=== PATIENT | female | born 1950 | race Caucasian/White ===

== ENCOUNTER 2016-11-10 08:17 | Emergency (ER) | payer OTHER ==
[~2016-11-10] VITALS: Ht 167.6 cm; Wt 136.1 kg
--- NOTE | ~2016-11-10 | EKG ---
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
[~2016-11-10 08:17] MED LIST: ABILIFY 5 MG TAB5 M1 PO; ACCUNEB1.25 MG/3 IH; ALBUTEROL2.5 MG/0.5 INH; ALBUTEROL2.5 MG/32; ASMANEX0.135 GM IH; ATIVAN0.5 MG PO; ATIVAN1 MG PO; BACTRIM DS TAB1 EACH PO; CEFTIN500 MG PO; CELEXA40 MG PO; CIPRO500 M1 PO; CIPROFLOXACIN500 M1 PO; CLEOCIN HCL300 MG PO; CYCLOBENZAPRINE10 MG PO; DEPAKOTE ER500 MG PO; DIOVAN PO; DOXYCYCLINE 10100 MG PO; GLIPIZIDE-METF1 EAC1 PO; INVOKANA100 MG PO; LATUDA40 MG PO; LATUDA80 MG PO; LEVOTHYROXIN0.125 M1 PO; LEVOTHYROXINE0.05 MG NG; LIPITOR40 MG PO; LISINOPRIL20 MG PO; LITHIUM CARBON300 M3 PO; LITHIUM8 MEQ/5 ML PO; NEBULIZER; NORCO 5-325 TA1 EACH PO; NYSTATIN 1100000 U/M PO; PRAVACHOL40 MG PO; PREDNISONE 20 M20 M1 PO; PREDNISONE 20 M20 MG PO; PREDNISONE50 MG PO; PRISTIQ50 MG PO; PROAIR HFA8.5 GM IH; PROBIOTIC1 EAC1 PO; PROVENTIL HFA6.7 G1 INH; SAPHRIS10 MG SL; SYNTHROID50 MCG PO; TRAMADOL 50 MG50 MG PO; VENTOLIN HFA 1818 GM INH; VITAMIN D 5050000 I1 PO; ZPAK PO
[2016-11-10 09:18] LABS: ABSOLUTE NEUTROPHILS 6.5 thou/uL (1.4-8.2); BASOPHILS 0.3 % (0.0-2.0); HEMATOCRIT 38.2 % (37.0-47.0); HEMOGLOBIN 12.7 gm/dL (12.0-15.0); LYMPHOCYTES 6.7 % (24.0-44.0); MCH 29.1 pg (26.0-34.0); MCHC 33.3 g/dL (28.0-37.0); MCV 87.6 fL (80.0-100.0); MONOCYTES 4.5 % (1.0-8.0); PLATELET COUNT 219 thou/uL (150-400); POLYS 84.5 % (36.0-66.0); RBC 4.36 mil/uL (4.20-5.00); RDW 14.4 % (10.5-14.5); WBC 7.7 thou/uL (4.0-11.0)
[2016-11-10 09:22] LABS: MANUAL DIFF NO
[2016-11-10 09:27] LABS: ANION GAP 8 mmol/L (7-16); BUN 8 mg/dL (7-18); CALCIUM 8.5 mg/dL (8.5-10.1); CHLORIDE 103 mmol/L (98-107); CO2 26 mmol/L (21-32); CREATININE 0.7 mg/dL (0.6-1.0); GLUCOSE 120 mg/dL (74-106); POTASSIUM 4.1 mmol/L (3.5-5.1); SODIUM 137 mmol/L (136-145)
[2016-11-10 09:42] LABS: ALBUMIN 3.3 g/dL (3.4-5.0); ALKALINE PHOSPHATASE 68 U/L (46-116); NT-PRO BRAIN NAT PEPTIDE 62 pg/mL (<300); SGOT 30 U/L (15-37); SGPT 27 U/L (30-65); TOTAL BILIRUBIN 0.4 mg/dL (<0.1-1.0); TROPONIN-I < 0.04 ng/mL (<0.04-0.07)
[2016-11-10] MEDS ORDERED: TRAMADOL 50 MG50 MG PO (10:11)
[2016-11-10 10:41] VITALS: BP 122/94
== END 2016-11-10 10:43 | disposition home or self-care (01) ==
LOC: ER 08:17
PROVIDERS: Emergency Medicine
DX: R42 Dizziness and giddiness (principal); S20.221A Contusion of right back wall of thorax, initial encounter; S09.90XA Unspecified injury of head, initial encounter; G89.29 Other chronic pain; R10.13 Epigastric pain; E11.649 Type 2 diabetes mellitus with hypoglycemia without coma; J45.909 Unspecified asthma, uncomplicated; F31.9 Bipolar disorder, unspecified; I10 Essential (primary) hypertension; M79.7 Fibromyalgia; E03.9 Hypothyroidism, unspecified; E78.00 Pure hypercholesterolemia, unspecified; F43.10 Post-traumatic stress disorder, unspecified; Z88.0 Allergy status to penicillin; Z88.5 Allergy status to narcotic agent; Z91.040 Latex allergy status; Z91.030 Bee allergy status; W18.30XA Fall on same level, unspecified, initial encounter; Y93.89 Activity, other specified; Y92.89 Other specified places as the place of occurrence of the external cause; Y99.8 Other external cause status

== ENCOUNTER 2017-02-19 11:27 | Inpatient (IN) | payer OTHER ==
[~2017-02-19] VITALS: Ht 167.6 cm; Wt 121.7 kg
--- NOTE | ~2017-02-19 | EKG ---
[address] [place] [address] ELECTROCARDIOGRAM REPORT Name: QUINTEN JAIMES Room #: 315-P ADM IN M.R.#: [id number] Admission: 02/19/17 Attend Phys: Blake Antoine DO Discharge: Date of : 48 Report #: [id number] THIS REPORT FOR: //name// [facility] ED Test Date: 2017-02-19 Test Time: 11:39:53 Pat Name: QUINTEN JAIMES Department: Room: [facility] Gender: F Planned Giving Officer: JARAD : 1950 Requested By: Jonathan Dunbar Order Number: [id number] MD: Brayan Damian Measurements Intervals [place] Rate: 112 P: 60 SC: 161 QRS: -60 QRSD: 110 T: 44 QT: 349 QTc: 477 Interpretive Statements Sinus tachycardia LAD, consider left anterior fascicular block Compared to ECG 11/10/2016 10:16:39 No significant change was found Electronically Signed On 02-20-2017 10:40:05 CDT by Brayan Damian [email or web address] <ELECTRONICALLY SIGNED> By: Brayan Damian MD, [facility] 02/20/17 1040 1139 1139 Brayan Damian MD, [facility] /EPI
[2017-02-19 11:29] VITALS: BP 131/83
[2017-02-19] MEDS ORDERED: GLUCOPHAGE1000 MG PO (12:29)
[2017-02-19 12:39] LABS: ABSOLUTE NEUTROPHILS 2.7 thou/uL (1.4-8.2); BASOPHILS 0.4 % (0.0-2.0); EOSINOPHILS 10.8 % (0.0-3.0); HEMATOCRIT 34.2 % (37.0-47.0); HEMOGLOBIN 11.3 gm/dL (12.0-15.0); LYMPHOCYTES 18.6 % (24.0-44.0); MCH 29.6 pg (26.0-34.0); MCV 89.8 fL (80.0-100.0); MONOCYTES 9.1 % (1.0-8.0); PLATELET COUNT 236 thou/uL (150-400); POLYS 61.1 % (36.0-66.0); RBC 3.81 mil/uL (4.20-5.00); RDW 15.2 % (10.5-14.5); WBC 4.5 thou/uL (4.0-11.0)
[2017-02-19 12:43] LABS: ANION GAP 10 mmol/L (7-16); BUN 9 mg/dL (7-18); CALCIUM 8.8 mg/dL (8.5-10.1); CHLORIDE 104 mmol/L (98-107); CO2 27 mmol/L (21-32); CREATININE 0.8 mg/dL (0.6-1.0); GLUCOSE 173 mg/dL (74-106); POTASSIUM 3.4 mmol/L (3.5-5.1); SODIUM 141 mmol/L (136-145)
[2017-02-19 12:45] LABS: MANUAL DIFF NO
[2017-02-19 12:57] LABS: NT-PRO BRAIN NAT PEPTIDE 198 pg/mL (<300); TROPONIN-I < 0.04 ng/mL (<0.04-0.07)
[2017-02-19 15:25] VITALS: BP 116/84
[2017-02-19 16:30] VITALS: BP 131/80
[2017-02-19 19:35] VITALS: BP 123/66
[2017-02-20 00:07] VITALS: BP 125/68
[2017-02-20 03:35] VITALS: BP 124/88
[2017-02-20 06:19] LABS: HEMATOCRIT 34.9 % (37.0-47.0); HEMOGLOBIN 11.3 gm/dL (12.0-15.0); MCH 29.3 pg (26.0-34.0); MCHC 32.4 g/dL (28.0-37.0); MCV 90.4 fL (80.0-100.0); PLATELET COUNT 206 thou/uL (150-400); RBC 3.86 mil/uL (4.20-5.00); RDW 15.1 % (10.5-14.5); WBC 5.3 thou/uL (4.0-11.0)
[2017-02-20 06:20] LABS: MANUAL DIFF YES
[2017-02-20 06:29] LABS: CALCIUM 9.1 mg/dL (8.5-10.1); CREATININE 0.7 mg/dL (0.6-1.0); POTASSIUM 4.2 mmol/L (3.5-5.1)
[2017-02-20 08:00] VITALS: BP 128/94
[2017-02-20 08:37] LABS: PLATELET ESTIMATE NORMAL; TOTAL CELL COUNT 100
[2017-02-20 16:00] VITALS: BP 109/65
[2017-02-20 19:00] VITALS: BP 125/54
[2017-02-21 03:51] VITALS: BP 121/58
[2017-02-21 07:46] VITALS: BP 137/77
[2017-02-21] MEDS ORDERED: PREDNISONE 20 M20 M1 PO (08:44)
[2017-02-21] MEDS ORDERED: VENTOLIN HFA 1818 GM INH (08:44)
[2017-02-21] MEDS ORDERED: ALBUTEROL2.5 MG/0.5 INH (08:44)
[2017-02-21] MEDS ORDERED: PULMICORT0.5 MG/21 INH (08:44)
[2017-02-21 12:48] VITALS: BP 137/77
== END 2017-02-21 14:50 | disposition home or self-care (01) | DRG 202 ==
LOC: ER 11:27 → EROBS 14:20 → 3N 14:20
PROVIDERS: Emergency Medicine; Family Medicine
DX: J45.901 Unspecified asthma with (acute) exacerbation (principal); Z68.41 Body mass index [BMI] 40.0-44.9, adult; F31.9 Bipolar disorder, unspecified; I10 Essential (primary) hypertension; E11.9 Type 2 diabetes mellitus without complications; E03.9 Hypothyroidism, unspecified; E78.00 Pure hypercholesterolemia, unspecified; F43.10 Post-traumatic stress disorder, unspecified; I27.2 Other secondary pulmonary hypertension; E66.9 Obesity, unspecified; R00.0 Tachycardia, unspecified; T48.6X5A Adverse effect of antiasthmatics, initial encounter; Z87.820 Personal history of traumatic brain injury; Z79.899 Other long term (current) drug therapy; Z88.0 Allergy status to penicillin; Z88.5 Allergy status to narcotic agent; Z91.040 Latex allergy status; Z91.030 Bee allergy status; Y92.89 Other specified places as the place of occurrence of the external cause
CPT/HCPCS: 10096

== ENCOUNTER 2017-04-24 13:34 | Emergency (ER) | payer OTHER ==
[~2017-04-24] VITALS: Ht 167.6 cm; Wt 117.9 kg
[~2017-04-24 13:34] MED LIST changes: +GLUCOPHAGE1000 MG PO; +PULMICORT0.5 MG/21 INH
[2017-04-24 14:22] LABS: ABSOLUTE NEUTROPHILS 4.4 thou/uL (1.4-8.2); BASOPHILS 0.5 % (0.0-2.0); EOSINOPHILS 8.5 % (0.0-3.0); HEMATOCRIT 31.2 % (37.0-47.0); HEMOGLOBIN 10.1 gm/dL (12.0-15.0); LYMPHOCYTES 17.1 % (24.0-44.0); MCH 29.3 pg (26.0-34.0); MCHC 32.5 g/dL (28.0-37.0); MCV 90.2 fL (80.0-100.0); MONOCYTES 6.6 % (1.0-8.0); PLATELET COUNT 255 thou/uL (150-400); POLYS 67.3 % (36.0-66.0); RBC 3.46 mil/uL (4.20-5.00); RDW 14.9 % (10.5-14.5); WBC 6.5 thou/uL (4.0-11.0)
[2017-04-24 14:23] LABS: MANUAL DIFF NO
[2017-04-24 14:27] LABS: CALCIUM 8.9 mg/dL (8.5-10.1); CREATININE 0.9 mg/dL (0.6-1.0); POTASSIUM 3.1 mmol/L (3.5-5.1)
[2017-04-24] MEDS ORDERED: KEFLEX500 MG PO (14:59)
[2017-04-24] MEDS ORDERED: ULTRAM 50MG TAB50 MG PO (15:00)
[2017-04-24 15:17] VITALS: BP 131/70
== END 2017-04-24 15:14 | disposition home or self-care (01) ==
LOC: ER 13:34
PROVIDERS: Emergency Medicine
DX: L03.116 Cellulitis of left lower limb (principal); L03.115 Cellulitis of right lower limb; J45.909 Unspecified asthma, uncomplicated; F31.9 Bipolar disorder, unspecified; I10 Essential (primary) hypertension; E11.9 Type 2 diabetes mellitus without complications; E03.9 Hypothyroidism, unspecified; E78.00 Pure hypercholesterolemia, unspecified; F43.10 Post-traumatic stress disorder, unspecified; I27.20 Pulmonary hypertension, unspecified; Z98.890 Other specified postprocedural states; Z88.0 Allergy status to penicillin; Z88.5 Allergy status to narcotic agent; Z91.040 Latex allergy status; Z91.030 Bee allergy status

== ENCOUNTER 2017-04-26 20:51 | Inpatient (IN) | payer OTHER ==
[~2017-04-26] VITALS: Ht 152.4 cm; Wt 128.8 kg
--- NOTE | ~2017-04-26 | EKG ---
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
--- NOTE | ~2017-04-26 | 2DMMODE ---
[facility] [address] [employer] [place] [address] 2 D/M-MODE ECHOCARDIOGRAM Name: QUINTEN JAIMES JARRETT Room #: 422-P ADM IN M.R.#: [id number] Admission: 04/26/17 Attend Phys: Blake Antoine, Discharge: Date of : 48 Date of Service: 04/27/17 1215 Report #: [id number] THIS REPORT FOR: //name// APPROVED REPORT Study performed: 04/27/2017 09:47:13 EXAM: Comprehensive 2D, Doppler, and color-flow Echocardiogram Patient Location: Bedside Room #: 422 BSA: 2.17 BP: 104/55 mmHg Other Information Study Quality: Technically Difficult 2D Dimensions RVDd: 37.37 mm LVEF(%): 52.16 (>50%) IVSd: 18.21 (7-11mm) LVOT Diam: 17.59 (18-24mm) LVDd: 38.52 mm PWd: 17.52 (7-11mm) Ascending Ao: 34.20 (22-36mm) LVDs: 28.41 (25-40mm) Aortic Root: 25.54 mm IVC: 21.00 mm Seals's LVEF: 52.16 % Volumes Left Atrial Volume (Systole) Single Plane 4CH: 64.33 mL Single Plane 2CH: 56.99 mL LA ESV Index: 33.00 mL/m2 Aortic Valve AoV Peak Jet.: 3.68 m/s AO Peak Gr.: 54.03 mmHg LVOT Max P.82 mmHg AO Mean Gr.: 29.12 mmHg LVOT Mean P.18 mmHg AO V2 Mean: 2.54 m/s LVOT Max V: 1.31 m/s AO V2 VTI: 76.51 cm LVOT Mean V: 0.81 m/s ANDREW (VTI): 0.94 cm2 LVOT V1 VTI: 29.53 cm ANDREW Vmax: 0.86 cm2 SV (LVOT): 71.69 mL Mitral Valve E/A Ratio: 0.8 MV Decel. Time: 274.33 ms [facility] [email or web address] [address] 2 D/M-MODE ECHOCARDIOGRAM Name: QUINTEN JAIMES BON SECOUR Room #: 422-P [facility] IN M.R.#: [id number] Admission: 04/26/17 Attend Phys: Blake Antoine, Discharge: Date of : 48 Date of Service: 04/27/17 1215 Report #: [id number] MV E Max Jet.: 1.08 m/s MV A Jet.: 1.31 m/s MV PHT: 79.56 ms IVRT: 93.43 ms Pulmonary Valve PV Peak Jet.: 1.11 m/s PV Peak Gr.: 4.97 mmHg Pulmonary Vein P Vein S: 0.66 m/s P Vein A: 0.29 m/s P Vein D: 0.49 m/s P Vein A Dur.: 114.2 msec P Vein S/D Ratio: 1.35 Tricuspid Valve TR Peak Jet.: 3.33 m/s RAP Estimate: 10.00 mmHg TR Peak Gr.: 44.31 mmHg Left Ventricle The left ventricle is normal size. Moderate concentric left ventricular hypertrophy. The left ventricular systolic function is normal. The left ventricular ejection fraction is within the normal range. LVEF is 60%. Mild diastolic dysfunction is present (impaired relaxation pattern). Right Ventricle Right ventricle is dilated. The right ventricular systolic function is normal. Atria Left atrium is at the upper limits of normal. Right atrium is mildly dilated. Aortic Valve The aortic valve is not well visualized. No aortic regurgitation is present. There is moderate to severe valvular aortic stenosis. Calculated aortic valve area is 0.9 cm2 with maximum pressure gradient of 54 mmHg and mean pressure gradient of 29.mmHg. Mitral Valve The mitral valve is normal in structure. There is no mitral valve regurgitation noted. No evidence of mitral valve stenosis. Tricuspid Valve The tricuspid valve is normal in structure. There is trace tricuspid regurgitation. The right atrial pressure is estimated at 10 mmHg. PAP is estimated at 54 [place] [address] 2 D/M-MODE ECHOCARDIOGRAM Name: QUINTEN JAIMES Room #: 422-P ADM IN M.R.#: [id number] Admission: 04/26/17 Attend Phys: Blake Antoine, Discharge: Date of : 48 Date of Service: 04/27/17 1215 Report #: [id number] Pulmonic Valve Pulmonic valve is not well visualized. There is no pulmonic valvular regurgitation. Great Vessels The aortic root is normal in size. IVC is upper limits of normal in size and collapses <50% with inspiration. Pericardium There is no pericardial effusion. <Conclusion> The left ventricle is normal size. LVEF is 60%. Right ventricle is dilated. Left atrium is at the upper limits of normal. Right atrium is mildly dilated. The aortic valve is not well visualized. There is moderate to severe valvular aortic stenosis. Calculated aortic valve area is 0.9 cm2 with maximum pressure gradient of 54 mmHg and mean pressure gradient of 29.mmHg. The mitral valve is normal in structure. The tricuspid valve is normal in structure. There is trace tricuspid regurgitation. The right atrial pressure is estimated at 10 mmHg. PAP is estimated at 54 mmHg. There is no pericardial effusion. <ELECTRONICALLY SIGNED> By: Esteban Lira MD 04/27/17 1215 14 14 Esteban Lira MD /INF
--- NOTE | ~2017-04-26 | EKG ---
[address] [address] ELECTROCARDIOGRAM REPORT Name: QUINTEN JAIMES Room #: 422-P ADM IN M.R.#: [id number] Admission: 04/26/17 Attend Phys: Blake Antoine DO Discharge: Date of : 48 Report #: [id number] THIS REPORT FOR: //name// [facility] ED Test Date: 2017-04-26 Test Time: 21:58:33 Pat Name: QUINTEN JAIMES Department: Room: 422 Gender: F Prestidigitator: JAIMIE : 1950 Requested By: Jonathan Dunbar Order Number: [id number] MD: Julien Andres Measurements Intervals [place] Rate: 99 P: 66 MN: 182 QRS: -2 QRSD: 109 T: 30 QT: 382 QTc: 491 Interpretive Statements Sinus rhythm Compared to ECG 02/19/2017 11:39:53 Sinus tachycardia no longer present Electronically Signed On 04-27-2017 8:24:00 CDT by Julien Andres [email or web address] <ELECTRONICALLY SIGNED> By: Julien Andres MD 04/27/17 08 57 57 Julien Andres MD /MAO
[~2017-04-26 20:51] MED LIST changes: +KEFLEX500 MG PO; +ULTRAM 50MG TAB50 MG PO
[2017-04-26 21:00] VITALS: BP 150/65
[2017-04-26 21:39] LABS: BASOPHILS 0.4 % (0.0-2.0); EOSINOPHILS 7.8 % (0.0-3.0); HEMATOCRIT 30.2 % (37.0-47.0); HEMOGLOBIN 9.8 gm/dL (12.0-15.0); MCH 29.3 pg (26.0-34.0); MCHC 32.4 g/dL (28.0-37.0); MCV 90.4 fL (80.0-100.0); MONOCYTES 5.4 % (1.0-8.0); PLATELET COUNT 230 thou/uL (150-400); POLYS 74.4 % (36.0-66.0); RBC 3.34 mil/uL (4.20-5.00); RDW 14.7 % (10.5-14.5); WBC 6.7 thou/uL (4.0-11.0)
[2017-04-26 21:44] LABS: MANUAL DIFF NO
[2017-04-26 21:45] LABS: CALCIUM 9.3 mg/dL (8.5-10.1); CREATININE 0.7 mg/dL (0.6-1.0); POTASSIUM 3.8 mmol/L (3.5-5.1)
[2017-04-26 23:57] VITALS: BP 134/73
[2017-04-27] MEDS ORDERED: CRESTOR10 MG (01:06)
[2017-04-27] MEDS ORDERED: LATUDA80 MG PO (01:09)
[2017-04-27] MEDS ORDERED: BENZTROPINE ME0.5 MG PO (01:09)
[2017-04-27] MEDS ORDERED: EFFEXOR 5050 MG/1 T1 PO (01:10)
[2017-04-27] MEDS ORDERED: INVOKANA100 MG PO (01:11)
[2017-04-27] MEDS ORDERED: IBUPROFEN 200200 M1 PO (01:12)
[2017-04-27 03:36] VITALS: BP 104/55
[2017-04-27 06:16] LABS: % SATURATION 13 % (20-39); IRON 37 ug/dL (50-170); TIBC 291 ug/dL (250-450); UIBC 254 ug/dL
[2017-04-27 07:51] LABS: HEMATOCRIT 29.6 % (37.0-47.0); HEMOGLOBIN 9.6 gm/dL (12.0-15.0); MCH 29.8 pg (26.0-34.0); MCHC 32.5 g/dL (28.0-37.0); MCV 91.8 fL (80.0-100.0); RBC 3.23 mil/uL (4.20-5.00); RDW 14.9 % (10.5-14.5); WBC 5.3 thou/uL (4.0-11.0)
[2017-04-27 08:00] VITALS: BP 133/76
[2017-04-27 16:00] VITALS: BP 112/56
[2017-04-27 19:21] VITALS: BP 92/57
[2017-04-28 03:45] VITALS: BP 106/69
[2017-04-28 08:10] VITALS: BP 124/69; BP 69/40
[2017-04-28 13:30] VITALS: BP 108/79
[2017-04-28 16:54] VITALS: BP 105/55
[2017-04-28 20:17] VITALS: BP 118/62
[2017-04-29 03:21] VITALS: BP 136/85
[2017-04-29 05:19] LABS: HEMOGLOBIN 9.6 gm/dL (12.0-15.0); MCH 29.8 pg (26.0-34.0); MCHC 33.3 g/dL (28.0-37.0); MCV 89.7 fL (80.0-100.0); PLATELET COUNT 224 thou/uL (150-400); RBC 3.23 mil/uL (4.20-5.00); RDW 14.6 % (10.5-14.5); WBC 7.7 thou/uL (4.0-11.0)
[2017-04-29 05:32] LABS: MANUAL DIFF YES
[2017-04-29 05:33] LABS: CALCIUM 8.8 mg/dL (8.5-10.1); CREATININE 0.6 mg/dL (0.6-1.0); POTASSIUM 4.4 mmol/L (3.5-5.1)
[2017-04-29 06:46] VITALS: BP 129/65
[2017-04-29 07:05] LABS: ABSOLUTE NEUTROPHILS 6.7 thou/uL (1.4-8.2); PLATELET ESTIMATE NORMAL; TOTAL CELL COUNT 100
[2017-04-29 09:10] VITALS: BP 101/67
[2017-04-29] MEDS ORDERED: LASIX 40 MG TAB40 M2 PO (09:33)
[2017-04-29] MEDS ORDERED: KEFLEX500 MG PO (09:33)
[2017-04-29 10:02] VITALS: BP 101/67
[2017-04-29 14:45] VITALS: BP 101/67
== END 2017-04-29 16:05 | disposition home or self-care (01) | DRG 603 ==
LOC: ER 20:51 → EROBS 22:32 → 4E 22:32
PROVIDERS: Family Medicine; Nurse Practitioner Acute Care; Nurse Practitioner Family
DX: L03.115 Cellulitis of right lower limb (principal); L03.116 Cellulitis of left lower limb; J45.909 Unspecified asthma, uncomplicated; F31.9 Bipolar disorder, unspecified; I10 Essential (primary) hypertension; E11.9 Type 2 diabetes mellitus without complications; E03.9 Hypothyroidism, unspecified; E78.00 Pure hypercholesterolemia, unspecified; I27.20 Pulmonary hypertension, unspecified; D64.9 Anemia, unspecified; F43.10 Post-traumatic stress disorder, unspecified; Z79.899 Other long term (current) drug therapy; Z88.5 Allergy status to narcotic agent; Z88.0 Allergy status to penicillin; Z87.820 Personal history of traumatic brain injury; Z90.49 Acquired absence of other specified parts of digestive tract; Z91.030 Bee allergy status; Z91.040 Latex allergy status; Z82.49 Family history of ischemic heart disease and other diseases of the circulatory system; Z82.5 Family history of asthma and other chronic lower respiratory diseases
CPT/HCPCS: 10084

== ENCOUNTER 2017-07-04 23:19 | Emergency (ER) | payer OTHER ==
[~2017-07-04] VITALS: Ht 162.6 cm; Wt 117.9 kg
[~2017-07-04 23:19] MED LIST changes: +AMLODIPINE BESY10 MG PO; +BENZTROPINE ME0.5 MG PO; +BUTALB-APAP-CA1 EACH PO; +CHILDREN'S ASPI81 M1 PO; +CRESTOR10 MG PO; +ECONOPRED PLUS10 M1 OP; +EFFEXOR 5050 MG/1 T1 PO; +GUAIFEN-CODEINE10 ML PO; +IBUPROFEN 200200 M1 PO; +KEFLEX500 M1 PO; +LAMICTAL 25 MG25 M1 PO; +LASIX 40 MG TAB40 M2 PO; +LEVAQUIN 500 M500 M1 PO
[2017-07-04 23:47] LABS: ABSOLUTE NEUTROPHILS 4.8 thou/uL (1.4-8.2); BASOPHILS 0.9 % (0.0-2.0); EOSINOPHILS 7.8 % (0.0-3.0); HEMATOCRIT 31.3 % (37.0-47.0); HEMOGLOBIN 10.3 gm/dL (12.0-15.0); LYMPHOCYTES 17.3 % (24.0-44.0); MCH 28.2 pg (26.0-34.0); MCHC 33.1 g/dL (28.0-37.0); MCV 85.1 fL (80.0-100.0); MONOCYTES 4.9 % (1.0-8.0); PLATELET COUNT 236 thou/uL (150-400); POLYS 69.1 % (36.0-66.0); RBC 3.67 mil/uL (4.20-5.00); WBC 7.5 thou/uL (4.0-11.0)
[2017-07-04 23:48] LABS: MANUAL DIFF NO
[2017-07-05 00:11] LABS: ANION GAP 9 mmol/L (7-16); BUN 10 mg/dL (7-18); CALCIUM 9.2 mg/dL (8.5-10.1); CHLORIDE 102 mmol/L (98-107); CO2 29 mmol/L (21-32); CREATININE 0.7 mg/dL (0.6-1.0); GLUCOSE 151 mg/dL (74-106); POTASSIUM 3.9 mmol/L (3.5-5.1); SODIUM 140 mmol/L (136-145)
[2017-07-05 00:17] LABS: ALKALINE PHOSPHATASE 76 U/L (46-116); DIRECT BILIRUBIN < 0.1 mg/dL (<0.1-0.3); SGOT 25 U/L (15-37); SGPT 20 U/L (30-65); TOTAL BILIRUBIN 0.2 mg/dL (<0.1-1.0); TOTAL PROTEIN 7.7 g/dL (6.4-8.2)
[2017-07-05] MEDS ORDERED: KEFLEX500 M1 PO (00:37)
[2017-07-05 00:59] LABS: URINE BILIRUBIN NEGATIVE (Negative); URINE BLOOD NEGATIVE (Negative); URINE COLOR YELLOW; URINE GLUCOSE-RANDOM* NEGATIVE (Negative); URINE KETONES NEGATIVE (Negative); URINE NITRITE NEGATIVE (Negative); URINE PROTEIN (DIPSTICK) NEGATIVE (Negative); URINE UROBILINOGEN 0.2 E.U./dl (0.2-1.0)
[2017-07-05 01:09] VITALS: BP 142/75
== END 2017-07-05 01:11 | disposition home or self-care (01) ==
LOC: ER 23:19
PROVIDERS: Emergency Medicine
DX: J06.9 Acute upper respiratory infection, unspecified (principal); L03.116 Cellulitis of left lower limb; L03.115 Cellulitis of right lower limb; J45.909 Unspecified asthma, uncomplicated; F31.9 Bipolar disorder, unspecified; I10 Essential (primary) hypertension; M79.7 Fibromyalgia; E11.9 Type 2 diabetes mellitus without complications; E03.9 Hypothyroidism, unspecified; E78.00 Pure hypercholesterolemia, unspecified; F43.10 Post-traumatic stress disorder, unspecified; Z90.89 Acquired absence of other organs; Z98.890 Other specified postprocedural states; Z91.041 Radiographic dye allergy status; Z91.030 Bee allergy status; Z88.5 Allergy status to narcotic agent; Z88.0 Allergy status to penicillin; Z87.891 Personal history of nicotine dependence

== ENCOUNTER → 2017-07-05 | Outpatient (CLI) | payer OTHER ==
[~2017-07-05] MED LIST changes: +ATORVASTATIN CA40 MG PO; +CEFDINIR300 MG PO; +CLEOCIN HCL150 MG PO; +ERGOCALCIF50000 UNIT PO; +LASIX 80 MG TAB80 MG PO; +LATUDA120 MG PO; +LISINOPRIL40 MG PO; +METFORMIN HCL500 MG PO; +POTASSIUM20 PO; +SYNTHROID112 MC1 PO; +SYNTHROID25 MC1 PO; +TRAZODONE HCL100 MG PO; +VITAMIN B-1100 M1 PO; +VITAMIN D22000 UNIT PO
== END ==
LOC: SEN 08:37
DX: F32.9 Major depressive disorder, single episode, unspecified (principal); I10 Essential (primary) hypertension

== ENCOUNTER 2018-03-30 00:31 | Emergency (ER) | payer OTHER ==
[~2018-03-30] VITALS: Ht 162.6 cm; Wt 95.3 kg
[~2018-03-30 00:31] MED LIST changes: -ATORVASTATIN CA40 MG PO; -CEFDINIR300 MG PO; -ERGOCALCIF50000 UNIT PO; -LASIX 80 MG TAB80 MG PO; -LATUDA120 MG PO; -LISINOPRIL40 MG PO; -METFORMIN HCL500 MG PO; -POTASSIUM20 PO; -SYNTHROID112 MC1 PO; -SYNTHROID25 MC1 PO; -TRAZODONE HCL100 MG PO; -VITAMIN B-1100 M1 PO; -VITAMIN D22000 UNIT PO
[2018-03-30] MEDS ORDERED: ULTRAM 50MG TAB50 MG PO (03:07)
[2018-03-30 03:19] VITALS: BP 120/50
[2018-03-31] MEDS ORDERED: KEFLEX500 M1 PO (04:23)
== END 2018-03-30 03:33 | disposition home or self-care (01) ==
LOC: ER 00:31
DX: S09.90XA Unspecified injury of head, initial encounter (principal); G89.29 Other chronic pain; Z76.0 Encounter for issue of repeat prescription; I11.0 Hypertensive heart disease with heart failure; I50.30 Unspecified diastolic (congestive) heart failure; J45.909 Unspecified asthma, uncomplicated; F31.9 Bipolar disorder, unspecified; M79.7 Fibromyalgia; E11.9 Type 2 diabetes mellitus without complications; E03.9 Hypothyroidism, unspecified; E78.00 Pure hypercholesterolemia, unspecified; Z87.891 Personal history of nicotine dependence; Z91.030 Bee allergy status; Z91.040 Latex allergy status; Z88.5 Allergy status to narcotic agent; Z88.0 Allergy status to penicillin; Z90.89 Acquired absence of other organs; Z90.49 Acquired absence of other specified parts of digestive tract; Z98.890 Other specified postprocedural states; W09.1XXA Fall from playground swing, initial encounter; Y92.89 Other specified places as the place of occurrence of the external cause; Y93.89 Activity, other specified; Y99.8 Other external cause status

== ENCOUNTER 2018-03-31 03:03 | Emergency (ER) | payer OTHER ==
[~2018-03-31] VITALS: Ht 167.6 cm; Wt 108.9 kg
--- NOTE | ~2018-03-31 | EKG ---
[address] [address] ELECTROCARDIOGRAM REPORT Name: QUINTEN JAIMES JARRETT Room #: REG MARITA Butler#: [id number] Admission: 03/31/18 Attend Phys: Discharge: Date of : 48 Report #: [id number] THIS REPORT FOR: //name// [facility] ED Test Date: 2018-03-31 Test Time: 04:21:46 Pat Name: QUINTEN JAIMES Department: Room: Gender: F Drink Mixer: chad : 1950 Requested By: Taurus Cohn Order Number: [id number] MD: Measurements Intervals [place] Rate: 67 P: 51 ME: 177 QRS: 18 QRSD: 115 T: 41 QT: 452 QTc: 478 Interpretive Statements Sinus rhythm Nonspecific intraventricular conduction delay Compared to ECG 06/15/2017 11:02:05 No significant changes [email or web address] By: 0 042 Epiphany MD Tevin /EPI
[~2018-03-31 03:03] MED LIST changes: +SYNTHROID112 MC1 PO
[2018-03-31 03:56] LABS: ABSOLUTE NEUTROPHILS 3.4 thou/uL (1.4-8.2); BASOPHILS 1.2 % (0.0-2.0); EOSINOPHILS 12.1 % (0.0-3.0); HEMATOCRIT 27.6 % (37.0-47.0); HEMOGLOBIN 9.2 gm/dL (12.0-15.0); LYMPHOCYTES 15.7 % (24.0-44.0); MCH 30.1 pg (26.0-34.0); MCHC 33.2 g/dL (28.0-37.0); MCV 90.6 fL (80.0-100.0); MONOCYTES 7.4 % (1.0-8.0); PLATELET COUNT 202 thou/uL (150-400); POLYS 63.6 % (36.0-66.0); RBC 3.05 mil/uL (4.20-5.00); WBC 5.3 thou/uL (4.0-11.0)
[2018-03-31 04:04] LABS: ANION GAP 7 mmol/L (7-16); BUN 18 mg/dL (7-18); CHLORIDE 106 mmol/L (98-107); CO2 25 mmol/L (21-32); CREATININE 0.8 mg/dL (0.6-1.0); GLUCOSE 117 mg/dL (74-106); POTASSIUM 3.5 mmol/L (3.5-5.1); SODIUM 138 mmol/L (136-145)
[2018-03-31 04:13] LABS: ALBUMIN 2.7 g/dL (3.4-5.0); SGOT 21 U/L (15-37); SGPT 14 U/L (30-65); TOTAL BILIRUBIN 0.1 mg/dL (<0.1-1.0); TROPONIN-I <0.06 ng/mL (<0.06)
[2018-03-31] MEDS ORDERED: KEFLEX500 M1 PO (04:23)
[2018-03-31 05:28] VITALS: BP 167/86
== END 2018-03-31 05:51 | disposition home or self-care (01) ==
LOC: ER 03:03
PROVIDERS: Emergency Medicine
DX: L03.115 Cellulitis of right lower limb (principal); L03.116 Cellulitis of left lower limb; R06.02 Shortness of breath; J45.909 Unspecified asthma, uncomplicated; E11.9 Type 2 diabetes mellitus without complications; E03.9 Hypothyroidism, unspecified; E78.00 Pure hypercholesterolemia, unspecified; I27.20 Pulmonary hypertension, unspecified; Z87.891 Personal history of nicotine dependence; Z88.0 Allergy status to penicillin; Z88.5 Allergy status to narcotic agent; Z91.030 Bee allergy status; Z91.040 Latex allergy status

== ENCOUNTER 2018-03-31 20:49 | Emergency (ER) | payer OTHER ==
[~2018-03-31] VITALS: Ht 162.6 cm; Wt 90.7 kg
--- NOTE | ~2018-03-31 | EKG ---
[address] [place] [address] ELECTROCARDIOGRAM REPORT Name: QUINTEN JAIMES Room #: DEP Luke#: [id number] Admission: 03/31/18 Attend Phys: Discharge: 03/31/18 Date of : 48 Report #: [id number] THIS REPORT FOR: //name// [facility] ED Test Date: 2018-03-31 Test Time: 21:04:58 Pat Name: QUINTEN JAIMES Department: Room: Gender: F Housekeeping/Laundry: [facility] : 1950 Requested By: Taurus Cohn Order Number: [id number] MD: Julien Andres Measurements Intervals [place] Rate: 89 P: 60 [place]: 199 QRS: -13 QRSD: 112 T: 28 QT: 405 QTc: 493 Interpretive Statements Sinus rhythm Borderline intraventricular conduction delay Compared to ECG 06/15/2017 11:02:05 No significant changes Electronically Signed On 04-01-2018 17:41:30 CDT by Julien Andres [email or web address] <ELECTRONICALLY SIGNED> By: Julien Andres MD 04/01/18 1741 2104 03 Julien Andres MD /MAO
[2018-03-31 20:53] VITALS: BP 151/76
== END 2018-03-31 23:23 | disposition home or self-care (01) ==
LOC: ER 20:49
DX: R06.02 Shortness of breath (principal); J45.909 Unspecified asthma, uncomplicated; E11.9 Type 2 diabetes mellitus without complications; E03.9 Hypothyroidism, unspecified; E78.5 Hyperlipidemia, unspecified; I27.20 Pulmonary hypertension, unspecified; Z88.0 Allergy status to penicillin; Z88.5 Allergy status to narcotic agent; Z91.030 Bee allergy status; Z91.040 Latex allergy status; Z87.891 Personal history of nicotine dependence

== ENCOUNTER 2018-04-15 05:11 | Emergency (ER) | payer OTHER ==
[~2018-04-15] VITALS: Ht 162.6 cm; Wt 90.7 kg
--- NOTE | ~2018-04-15 | EKG ---
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 : 1950 Requested By: Denzel Farrell Order Number: [id number] MD: Brayan Damian Measurements Intervals [place] Rate: 72 P: 46 FL: 180 QRS: 5 QRSD: 112 T: 36 QT: 431 QTc: 472 Interpretive Statements Sinus rhythm Borderline intraventricular conduction delay Compared to ECG 03/31/2018 21:04:58 No significant changes Electronically Signed On 04-15-2018 8:22:32 CDT by Brayan Damian [email or web address] <ELECTRONICALLY SIGNED> By: Brayan Damian MD, [facility] 04/15/18 0822 0558 0558 Brayan Damian MD, FACC /EPI
[2018-04-15] MEDS ORDERED: LISINOPRIL40 MG PO (05:16)
[2018-04-15 05:49] LABS: URINE BILIRUBIN NEGATIVE (Negative); URINE BLOOD NEGATIVE (Negative); URINE CLARITY CLEAR; URINE COLOR YELLOW; URINE GLUCOSE-RANDOM* NEGATIVE (Negative); URINE KETONES NEGATIVE (Negative); URINE LEUKOCYTES-REFLEX NEGATIVE (Negative); URINE NITRITE-REFLEX NEGATIVE (Negative); URINE PROTEIN (DIPSTICK) NEGATIVE (Negative); URINE SPECIFIC GRAVITY 1.015 (1.005-1.035); URINE UROBILINOGEN 0.2 E.U./dl (0.2-1.0)
[2018-04-15] MEDS ORDERED: ATORVASTATIN CA40 MG PO (05:51)
[2018-04-15] MEDS ORDERED: CEFDINIR300 MG PO (05:52)
[2018-04-15] MEDS ORDERED: VITAMIN D22000 UNIT PO (05:53)
[2018-04-15] MEDS ORDERED: LASIX 80 MG TAB80 MG PO (05:53)
[2018-04-15] MEDS ORDERED: PROBIOTIC1 EAC1 PO (05:53)
[2018-04-15] MEDS ORDERED: SYNTHROID25 MC1 PO (05:55)
[2018-04-15] MEDS ORDERED: POTASSIUM20 PO (05:56)
[2018-04-15 05:57] LABS: AMP/METHAMP Negative (Negative); BARBITURATES Negative (Negative); BENZODIAZEPINES Negative (Negative); COCAINE Negative (Negative); METHADONE Negative (Negative); OPIATES Negative (Negative); PCP Negative (Negative)
[2018-04-15] MEDS ORDERED: TRAMADOL 50 MG50 MG PO (05:58)
[2018-04-15] MEDS ORDERED: VITAMIN B-1100 M1 PO (05:58)
[2018-04-15] MEDS ORDERED: TRAZODONE HCL100 MG PO (05:59)
[2018-04-15 06:14] LABS: ABSOLUTE NEUTROPHILS 5.2 thou/uL (1.4-8.2); BASOPHILS 0.9 % (0.0-2.0); EOSINOPHILS 7.5 % (0.0-3.0); HEMATOCRIT 29.4 % (37.0-47.0); HEMOGLOBIN 9.9 gm/dL (12.0-15.0); LYMPHOCYTES 13.4 % (24.0-44.0); MCH 30.3 pg (26.0-34.0); MCHC 33.8 g/dL (28.0-37.0); MCV 89.8 fL (80.0-100.0); MONOCYTES 7.5 % (1.0-8.0); PLATELET COUNT 246 thou/uL (150-400); POLYS 70.7 % (36.0-66.0); RBC 3.27 mil/uL (4.20-5.00); RDW 13.9 % (10.5-14.5); WBC 7.3 thou/uL (4.0-11.0)
[2018-04-15 06:24] LABS: ANION GAP 6 mmol/L (7-16); BUN 18 mg/dL (7-18); CALCIUM 9.1 mg/dL (8.5-10.1); CHLORIDE 98 mmol/L (98-107); CO2 29 mmol/L (21-32); CREATININE 0.9 mg/dL (0.6-1.0); GLUCOSE 93 mg/dL (74-106); POTASSIUM 3.9 mmol/L (3.5-5.1); SODIUM 133 mmol/L (136-145)
[2018-04-15 06:32] LABS: ALBUMIN 3.4 g/dL (3.4-5.0); SALICYLATE < 2.8 mg/dL (2.8-20.0); SGOT 25 U/L (15-37); SGPT 19 U/L (30-65); TOTAL BILIRUBIN 0.2 mg/dL (<0.1-1.0); TOTAL PROTEIN 8.2 g/dL (6.4-8.2); TROPONIN-I <0.06 ng/mL (<0.06)
[2018-04-15 10:15] VITALS: BP 138/69
[2018-04-16] MEDS ORDERED: METFORMIN HCL500 MG PO (03:18)
[2018-04-16] MEDS ORDERED: EFFEXOR 5050 MG/1 T1 PO (03:21)
[2018-04-16] MEDS ORDERED: LATUDA120 MG PO (03:23)
[2018-04-16] MEDS ORDERED: ERGOCALCIF50000 UNIT PO (04:07)
== END 2018-04-15 10:15 | disposition home or self-care (01) ==
LOC: ER 05:11
PROVIDERS: Emergency Medicine
DX: F31.9 Bipolar disorder, unspecified (principal); F41.9 Anxiety disorder, unspecified

== ENCOUNTER 2018-04-16 00:49 | Inpatient (IN) | payer OTHER ==
[~2018-04-16] VITALS: Ht 162.6 cm; Wt 110.7 kg
--- NOTE | ~2018-04-16 | EKG ---
[address] [address] ELECTROCARDIOGRAM REPORT Name: QUINTEN JAIMES Room #: 463-P ADM IN M.R.#: [id number] Admission: 04/16/18 Attend Phys: Varinder You Discharge: Date of : 48 Report #: [id number] THIS REPORT FOR: //name// [facility] ED Test Date: 2018-04-16 Test Time: 01:00:28 Pat Name: QUINTEN JAIMES Department: Room: 463 Gender: F Inspector Multifocal Lens: LORRIE : 1950 Requested By: Alice Vaca Order Number: [id number] MD: Brayan Damian Measurements Intervals [place] Rate: 96 P: 66 RI: 212 QRS: 36 QRSD: 113 T: 53 QT: 382 QTc: 483 Interpretive Statements Sinus rhythm Borderline prolonged RI interval Compared to ECG 04/15/2018 05:58:20 No significant changes Electronically Signed On 04-16-2018 7:35:23 CDT by Brayan Damian [email or web address] <ELECTRONICALLY SIGNED> By: Brayan Damian MD, [facility] 04/16/18 0735 010 Brayan Damian MD, FACC /EPI
[~2018-04-16 00:49] MED LIST changes: +ATORVASTATIN CA40 MG PO; +CEFDINIR300 MG PO; +LASIX 80 MG TAB80 MG PO; +LISINOPRIL40 MG PO; +POTASSIUM20 PO; +SYNTHROID25 MC1 PO; +TRAZODONE HCL100 MG PO; +VITAMIN B-1100 M1 PO; +VITAMIN D22000 UNIT PO
[2018-04-16 00:50] VITALS: BP 134/78
[2018-04-16 01:26] LABS: ABSOLUTE NEUTROPHILS 4.5 thou/uL (1.4-8.2); BASOPHILS 0.4 % (0.0-2.0); EOSINOPHILS 8.7 % (0.0-3.0); HEMATOCRIT 29.3 % (37.0-47.0); LYMPHOCYTES 13.6 % (24.0-44.0); MCH 30.9 pg (26.0-34.0); MCHC 34.1 g/dL (28.0-37.0); MCV 90.5 fL (80.0-100.0); PLATELET COUNT 232 thou/uL (150-400); POLYS 71.3 % (36.0-66.0); RBC 3.24 mil/uL (4.20-5.00); RDW 14.1 % (10.5-14.5); WBC 6.4 thou/uL (4.0-11.0)
[2018-04-16 01:31] LABS: ANION GAP 7 mmol/L (7-16); BUN 20 mg/dL (7-18); CALCIUM 9.4 mg/dL (8.5-10.1); CHLORIDE 100 mmol/L (98-107); CO2 31 mmol/L (21-32); CREATININE 0.8 mg/dL (0.6-1.0); GLUCOSE 92 mg/dL (74-106); POTASSIUM 3.8 mmol/L (3.5-5.1); SODIUM 138 mmol/L (136-145)
[2018-04-16 01:40] LABS: TROPONIN-I <0.06 ng/mL (<0.06)
[2018-04-16 02:49] VITALS: BP 102/50
[2018-04-16 03:18] VITALS: BP 159/71
[2018-04-16] MEDS ORDERED: METFORMIN HCL500 MG PO (03:18)
[2018-04-16] MEDS ORDERED: EFFEXOR 5050 MG/1 T1 PO (03:21)
[2018-04-16] MEDS ORDERED: LATUDA120 MG PO (03:23)
[2018-04-16] MEDS ORDERED: ERGOCALCIF50000 UNIT PO (04:07)
[2018-04-16 07:30] VITALS: BP 126/76
[2018-04-16 19:28] VITALS: BP 105/57
[2018-04-17 01:21] VITALS: BP 105/57
[2018-04-17 08:00] VITALS: BP 94/52
[2018-04-17] MEDS ORDERED: CEFDINIR300 MG PO (12:55)
[2018-04-17] MEDS ORDERED: ALBUTEROL2.5 MG/0.5 INH (12:56)
[2018-04-17 13:51] VITALS: BP 94/52
== END 2018-04-17 14:46 | disposition home health service (06) | DRG 602 ==
LOC: ER 00:49 → EROBS 02:29 → 4W 02:29
PROVIDERS: Emergency Medicine
DX: L03.116 Cellulitis of left lower limb (principal); I50.33 Acute on chronic diastolic (congestive) heart failure; L03.115 Cellulitis of right lower limb; E78.00 Pure hypercholesterolemia, unspecified; E03.9 Hypothyroidism, unspecified; R09.02 Hypoxemia; F43.10 Post-traumatic stress disorder, unspecified; I11.0 Hypertensive heart disease with heart failure; D53.9 Nutritional anemia, unspecified; E11.9 Type 2 diabetes mellitus without complications; R29.6 Repeated falls; M79.7 Fibromyalgia; F31.9 Bipolar disorder, unspecified; J45.909 Unspecified asthma, uncomplicated; I27.20 Pulmonary hypertension, unspecified; Z98.891 History of uterine scar from previous surgery; Z90.49 Acquired absence of other specified parts of digestive tract; Z79.899 Other long term (current) drug therapy; Z79.84 Long term (current) use of oral hypoglycemic drugs; Z79.82 Long term (current) use of aspirin; Z88.5 Allergy status to narcotic agent; Z88.0 Allergy status to penicillin; Z91.030 Bee allergy status; Z91.040 Latex allergy status; Z87.891 Personal history of nicotine dependence; Z82.49 Family history of ischemic heart disease and other diseases of the circulatory system; Z83.6 Family history of other diseases of the respiratory system
CPT/HCPCS: 10045

== ENCOUNTER 2018-04-22 19:30 | Emergency (ER) | payer OTHER ==
[~2018-04-22] VITALS: Ht 160 cm; Wt 108.9 kg
[~2018-04-22 19:30] MED LIST changes: +ERGOCALCIF50000 UNIT PO; +LATUDA120 MG PO; +METFORMIN HCL500 MG PO
[2018-04-22 21:58] VITALS: BP 159/104
== END 2018-04-22 22:00 | disposition home or self-care (01) ==
LOC: ER 19:30
DX: G89.29 Other chronic pain (principal); M19.90 Unspecified osteoarthritis, unspecified site; M79.7 Fibromyalgia; E11.9 Type 2 diabetes mellitus without complications; E03.9 Hypothyroidism, unspecified; E78.00 Pure hypercholesterolemia, unspecified; J45.909 Unspecified asthma, uncomplicated; I27.20 Pulmonary hypertension, unspecified; Z79.899 Other long term (current) drug therapy; Z88.0 Allergy status to penicillin; Z88.5 Allergy status to narcotic agent; Z91.040 Latex allergy status; Z91.030 Bee allergy status; Z87.891 Personal history of nicotine dependence; W18.30XA Fall on same level, unspecified, initial encounter; Y93.K1 Activity, walking an animal; Y92.89 Other specified places as the place of occurrence of the external cause; Y99.8 Other external cause status

== ENCOUNTER 2018-04-24 02:30 | Emergency (ER) | payer OTHER ==
[~2018-04-24] VITALS: Ht 160 cm; Wt 108.9 kg
[2018-04-24 03:43] VITALS: BP 152/77
== END 2018-04-24 03:44 | disposition home or self-care (01) ==
LOC: ER 02:30
DX: F31.9 Bipolar disorder, unspecified (principal); F41.9 Anxiety disorder, unspecified; M79.7 Fibromyalgia; I11.0 Hypertensive heart disease with heart failure; I50.30 Unspecified diastolic (congestive) heart failure; E11.9 Type 2 diabetes mellitus without complications; E03.9 Hypothyroidism, unspecified; E78.00 Pure hypercholesterolemia, unspecified; J45.909 Unspecified asthma, uncomplicated; Z90.49 Acquired absence of other specified parts of digestive tract; Z98.890 Other specified postprocedural states; Z87.891 Personal history of nicotine dependence; Z91.030 Bee allergy status; Z91.040 Latex allergy status; Z88.5 Allergy status to narcotic agent; Z88.0 Allergy status to penicillin; Z90.89 Acquired absence of other organs

== ENCOUNTER 2018-05-27 12:03 | Emergency (ER) | payer OTHER ==
[~2018-05-27] VITALS: Ht 162.6 cm; Wt 108.9 kg
[2018-05-27 13:37] VITALS: BP 149/72
[2018-05-27] MEDS ORDERED: ZYRTEC10 MG PO (14:06)
[2018-05-27] MEDS ORDERED: AFRIN30 ML NASAL (14:08)
== END 2018-05-27 14:22 | disposition home or self-care (01) ==
LOC: ER 12:03
DX: J30.9 Allergic rhinitis, unspecified (principal); R05 Cough; R09.81 Nasal congestion; F31.9 Bipolar disorder, unspecified; F41.9 Anxiety disorder, unspecified; M79.7 Fibromyalgia; E03.9 Hypothyroidism, unspecified; E78.00 Pure hypercholesterolemia, unspecified; J45.909 Unspecified asthma, uncomplicated; I10 Essential (primary) hypertension; Z98.890 Other specified postprocedural states; Z87.891 Personal history of nicotine dependence; Z88.0 Allergy status to penicillin; Z88.5 Allergy status to narcotic agent; Z91.040 Latex allergy status

== ENCOUNTER 2018-05-28 22:00 | Emergency (ER) | payer OTHER ==
[~2018-05-28] VITALS: Ht 162.6 cm; Wt 106.6 kg
[~2018-05-28 22:00] MED LIST changes: +AFRIN30 ML NASAL; +ZYRTEC10 MG PO
[2018-05-29] MEDS ORDERED: PREDNISONE 10 M10 MG PO (00:28)
[2018-05-29] MEDS ORDERED: VENTOLIN HFA 1818 GM INH (00:28)
[2018-05-29 01:22] VITALS: BP 136/62
== END 2018-05-29 01:24 | disposition home or self-care (01) ==
LOC: ER 22:00
DX: J45.901 Unspecified asthma with (acute) exacerbation (principal); E11.9 Type 2 diabetes mellitus without complications; E03.9 Hypothyroidism, unspecified; E78.00 Pure hypercholesterolemia, unspecified; J45.909 Unspecified asthma, uncomplicated; I10 Essential (primary) hypertension; F31.9 Bipolar disorder, unspecified; F41.9 Anxiety disorder, unspecified; M79.7 Fibromyalgia; Z98.890 Other specified postprocedural states; Z87.891 Personal history of nicotine dependence; Z88.0 Allergy status to penicillin; Z88.5 Allergy status to narcotic agent; Z91.030 Bee allergy status; Z91.040 Latex allergy status

== ENCOUNTER 2018-06-09 20:44 | Emergency (ER) | payer OTHER ==
[~2018-06-09] VITALS: Ht 162.6 cm; Wt 106.6 kg
[~2018-06-09 20:44] MED LIST changes: +PREDNISONE 10 M10 MG PO
[2018-06-09] MEDS ORDERED: TRAMADOL 50 MG50 MG PO (21:54)
[2018-06-09 22:50] VITALS: BP 106/53
== END 2018-06-09 22:50 | disposition home or self-care (01) ==
LOC: ER 20:44
DX: S46.811A Strain of other muscles, fascia and tendons at shoulder and upper arm level, right arm, initial encounter (principal); S93.492A Sprain of other ligament of left ankle, initial encounter; S60.212A Contusion of left wrist, initial encounter; I11.0 Hypertensive heart disease with heart failure; I50.30 Unspecified diastolic (congestive) heart failure; F31.9 Bipolar disorder, unspecified; F41.9 Anxiety disorder, unspecified; M79.7 Fibromyalgia; E11.9 Type 2 diabetes mellitus without complications; E03.9 Hypothyroidism, unspecified; E78.00 Pure hypercholesterolemia, unspecified; G89.29 Other chronic pain; M54.9 Dorsalgia, unspecified; J45.909 Unspecified asthma, uncomplicated; Z87.891 Personal history of nicotine dependence; Z91.030 Bee allergy status; Z88.8 Allergy status to other drugs, medicaments and biological substances; Z91.040 Latex allergy status; Z88.5 Allergy status to narcotic agent; Z88.0 Allergy status to penicillin; Z90.49 Acquired absence of other specified parts of digestive tract; Z98.890 Other specified postprocedural states; Z90.89 Acquired absence of other organs; W18.39XA Other fall on same level, initial encounter; Y92.89 Other specified places as the place of occurrence of the external cause; Y93.01 Activity, walking, marching and hiking; Y99.8 Other external cause status

== ENCOUNTER 2018-06-21 02:09 | Emergency (ER) | payer OTHER ==
[~2018-06-21] VITALS: Ht 162.6 cm; Wt 111.1 kg
--- NOTE | ~2018-06-21 | EKG ---
[place] [address] [employer] [place] [address] ELECTROCARDIOGRAM REPORT Name: QUINTEN JAIMES [facility] [id number] Admission: 06/21/18 Attend Phys: Discharge: 06/21/18 Date of : 48 Report #: [id number] THIS REPORT FOR: //name// [facility] ED Test Date: 2018-06-21 Test Time: 02:36:42 Pat Name: QUINTEN JAIMES Department: Room: Gender: F Department Director: VINNIE REGAN : 1950 Requested By: Hunter Rodriguez Order Number: [id number] MD: Joseph Maldonado Measurements Intervals [place] Rate: 87 P: 68 NE: 193 QRS: 3 QRSD: 123 T: 34 QT: 398 QTc: 479 Interpretive Statements Sinus rhythm Probable left atrial enlargement Left ventricular hypertrophy Baseline wander in lead(s) V1,V2 Compared to ECG 04/16/2018 01:00:28 Left ventricular hypertrophy now present Electronically Signed On 06-21-2018 9:18:38 [employer] by Joseph Maldonado [email or web address] <ELECTRONICALLY SIGNED> By: Joseph Maldonado MD 06/21/18917 0236 0236 MD LISBETH [place]
[2018-06-21 02:41] LABS: ABSOLUTE NEUTROPHILS 4.6 thou/uL (1.4-8.2); BASOPHILS 0.9 % (0.0-2.0); EOSINOPHILS 7.4 % (0.0-3.0); HEMOGLOBIN 10.7 gm/dL (12.0-15.0); LYMPHOCYTES 13.6 % (24.0-44.0); MCHC 32.3 g/dL (28.0-37.0); MCV 86.5 fL (80.0-100.0); MONOCYTES 10.1 % (1.0-8.0); PLATELET COUNT 246 thou/uL (150-400); RBC 3.82 mil/uL (4.20-5.00); RDW 14.4 % (10.5-14.5); WBC 6.8 thou/uL (4.0-11.0)
[2018-06-21 02:47] LABS: ANION GAP 5 mmol/L (7-16); BUN 29 mg/dL (7-18); CALCIUM 9.7 mg/dL (8.5-10.1); CHLORIDE 101 mmol/L (98-107); CO2 31 mmol/L (21-32); CREATININE 0.9 mg/dL (0.6-1.0); GLUCOSE 95 mg/dL (74-106); POTASSIUM 3.5 mmol/L (3.5-5.1); SODIUM 137 mmol/L (136-145)
[2018-06-21 02:55] LABS: ALBUMIN 3.4 g/dL (3.4-5.0); SGOT 22 U/L (15-37); SGPT 19 U/L (30-65); TOTAL BILIRUBIN 0.3 mg/dL (<0.1-1.0); TOTAL PROTEIN 7.8 g/dL (6.4-8.2); TROPONIN-I <0.06 ng/mL (<0.06)
[2018-06-21 03:32] VITALS: BP 126/58
== END 2018-06-21 03:40 | disposition home or self-care (01) ==
LOC: ER 02:09
PROVIDERS: Emergency Medicine
DX: R07.89 Other chest pain (principal); I10 Essential (primary) hypertension; F31.9 Bipolar disorder, unspecified; F41.9 Anxiety disorder, unspecified; M79.7 Fibromyalgia; E11.9 Type 2 diabetes mellitus without complications; E03.9 Hypothyroidism, unspecified; E78.00 Pure hypercholesterolemia, unspecified; J45.909 Unspecified asthma, uncomplicated; Z90.49 Acquired absence of other specified parts of digestive tract; Z98.890 Other specified postprocedural states; Z87.891 Personal history of nicotine dependence; Z91.030 Bee allergy status; Z88.8 Allergy status to other drugs, medicaments and biological substances; Z91.040 Latex allergy status; Z88.5 Allergy status to narcotic agent; Z88.0 Allergy status to penicillin; Z90.89 Acquired absence of other organs

== ENCOUNTER 2018-06-26 22:57 | Emergency (ER) | payer OTHER ==
[~2018-06-26] VITALS: Ht 165.1 cm; Wt 111.1 kg
--- NOTE | ~2018-06-26 | EKG ---
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: MIKEY : 1950 Requested By: Katrin Gonzalez Order Number: [id number] MD: Brayan Damian Measurements Intervals [place] Rate: 96 P: 70 ND: 174 QRS: -4 QRSD: 113 T: 45 QT: 390 QTc: 493 Interpretive Statements Sinus rhythm No significant abnormality Compared to ECG 06/21/2018 02:36:42 No significant change was found Electronically Signed On 06-27-2018 8:39:34 GRAB SETTER by Brayan Damian [email or web address] <ELECTRONICALLY SIGNED> By: Brayan Damian MD, [facility] 06/27/18 0839 0436 0436 Brayan Damian MD, FACC /EPI
[2018-06-26] MEDS ORDERED: NEURONTIN100 MG PO (23:23)
[2018-06-26] MEDS ORDERED: DOXYCYCLINE 10100 M1 PO (23:23)
[2018-06-26 23:51] LABS: ABSOLUTE NEUTROPHILS 3.3 thou/uL (1.4-8.2); EOSINOPHILS 10.7 % (0.0-3.0); HEMATOCRIT 30.6 % (37.0-47.0); HEMOGLOBIN 10.4 gm/dL (12.0-15.0); LYMPHOCYTES 20.5 % (24.0-44.0); MCH 29.4 pg (26.0-34.0); MCHC 33.9 g/dL (28.0-37.0); MCV 86.6 fL (80.0-100.0); MONOCYTES 6.9 % (1.0-8.0); PLATELET COUNT 196 thou/uL (150-400); POLYS 60.9 % (36.0-66.0); RBC 3.54 mil/uL (4.20-5.00); RDW 14.3 % (10.5-14.5); WBC 5.3 thou/uL (4.0-11.0)
[2018-06-26 23:59] LABS: ANION GAP 9 mmol/L (7-16); BUN 16 mg/dL (7-18); CHLORIDE 104 mmol/L (98-107); CO2 28 mmol/L (21-32); CREATININE 0.7 mg/dL (0.6-1.0); GLUCOSE 114 mg/dL (74-106); POTASSIUM 3.4 mmol/L (3.5-5.1); SODIUM 141 mmol/L (136-145)
[2018-06-27 00:10] LABS: TROPONIN-I <0.06 ng/mL (<0.06)
[2018-06-27 03:11] LABS: AMP/METHAMP Negative (Negative); BARBITURATES Negative (Negative); BENZODIAZEPINES Negative (Negative); COCAINE Negative (Negative); METHADONE Negative (Negative); OPIATES Negative (Negative); PCP Negative (Negative)
[2018-06-27] MEDS ORDERED: TRAZODONE HCL50 MG PO (09:55)
[2018-06-27] MEDS ORDERED: SYNTHROID150 MCG PO (09:55)
[2018-06-27] MEDS ORDERED: DOXYCYCLINE 10100 MG PO (09:55)
[2018-06-27] MEDS ORDERED: LISINOPRIL20 MG PO (09:56)
[2018-06-27] MEDS ORDERED: TRAMADOL 50 MG50 MG PO (09:57)
[2018-06-27] MEDS ORDERED: KLOR-CON M2020 MEQ PO (10:00)
[2018-06-27] MEDS ORDERED: LASIX 20 MG TAB20 MG PO (10:02)
[2018-06-27 11:57] VITALS: BP 141/86
== END 2018-06-27 12:34 | disposition short-term general hospital (02) ==
LOC: ER 22:57
PROVIDERS: Student in an Organized Health Care Education/Training Program
DX: R45.851 Suicidal ideations (principal); I11.0 Hypertensive heart disease with heart failure; I50.30 Unspecified diastolic (congestive) heart failure; F31.9 Bipolar disorder, unspecified; F41.9 Anxiety disorder, unspecified; M79.7 Fibromyalgia; E11.9 Type 2 diabetes mellitus without complications; E03.9 Hypothyroidism, unspecified; E78.00 Pure hypercholesterolemia, unspecified; J45.909 Unspecified asthma, uncomplicated; Z90.49 Acquired absence of other specified parts of digestive tract; Z98.890 Other specified postprocedural states; Z87.891 Personal history of nicotine dependence; Z91.030 Bee allergy status; Z88.8 Allergy status to other drugs, medicaments and biological substances; Z91.040 Latex allergy status; Z88.5 Allergy status to narcotic agent; Z88.0 Allergy status to penicillin; Z90.89 Acquired absence of other organs

== ENCOUNTER 2018-09-20 14:22 | Emergency (ER) | payer OTHER ==
[~2018-09-20] VITALS: Ht 165.1 cm; Wt 111.1 kg
[~2018-09-20 14:22] MED LIST changes: +DOXYCYCLINE 10100 M1 PO; +KLOR-CON M2020 MEQ PO; +LASIX 20 MG TAB20 MG PO; +NEURONTIN100 MG PO; +SYNTHROID150 MCG PO; +TRAZODONE HCL50 MG PO
[2018-09-20 14:27] VITALS: BP 120/74
[2018-09-20 15:39] LABS: ABSOLUTE NEUTROPHILS 5.7 thou/uL (1.4-8.2); BASOPHILS 0.5 % (0.0-2.0); EOSINOPHILS 7.5 % (0.0-3.0); HEMOGLOBIN 12.8 gm/dL (12.0-15.0); LYMPHOCYTES 10.6 % (24.0-44.0); MCH 28.7 pg (26.0-34.0); MCHC 32.9 g/dL (28.0-37.0); MCV 87.1 fL (80.0-100.0); PLATELET COUNT 231 thou/uL (150-400); POLYS 74.4 % (36.0-66.0); RBC 4.48 mil/uL (4.20-5.00); RDW 15.3 % (10.5-14.5); WBC 7.7 thou/uL (4.0-11.0)
[2018-09-20 15:41] LABS: MAGNESIUM 2.1 mg/dL (1.8-2.4); TROPONIN-I <0.06 ng/mL (<0.06)
[2018-09-20 15:54] LABS: CALCIUM 9.2 mg/dL (8.5-10.1); CREATININE 0.7 mg/dL (0.6-1.0)
[2018-09-20 15:59] LABS: ALBUMIN 3.7 g/dL (3.4-5.0); TOTAL BILIRUBIN 0.2 mg/dL (<0.1-1.0); TOTAL PROTEIN 7.1 g/dL (6.4-8.2)
[2018-09-20] MEDS ORDERED: PREDNISONE 20 M20 MG PO (16:17)
[2018-09-20] MEDS ORDERED: DOXYCYCLINE 10100 MG PO (16:17)
[2018-09-20] MEDS ORDERED: VENTOLIN HFA 1818 GM INH (16:17)
[2018-09-20 16:18] VITALS: BP 133/62
[2018-09-20 16:32] VITALS: BP 133/62
[2018-09-20 17:13] VITALS: BP 124/65
--- NOTE | 2018-09-22 13:22 | EKG ---
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: WG : 1950 Requested By: Denzel Farrell Order Number: [id number] MD: Brayan Damian Measurements Intervals [place] Rate: 109 P: 81 MS: 165 QRS: -18 QRSD: 103 T: 37 QT: 359 QTc: 484 Interpretive Statements Sinus tachycardia Borderline left axis deviation Borderline prolonged QT interval Compared to ECG 06/27/2018 04:36:10 No significant change was found Electronically Signed On 09-22-2018 13:22:18 CDT by Brayan Damian [email or web address] ��������������������������������������������� <ELECTRONICALLY SIGNED> ���������������������������������������� By: Brayan Damian MD, [facility] ��������������������������������������������� 09/22/18 1322 D: 03/1500 150 Brayan Damian MD, FACC /EPI
== END 2018-09-20 17:14 | disposition left against medical advice (07) ==
LOC: ER 14:22 → EROBS 16:03 → ER 16:03
PROVIDERS: Emergency Medicine
DX: J44.9 Chronic obstructive pulmonary disease, unspecified (principal); I51.7 Cardiomegaly; F31.9 Bipolar disorder, unspecified; F41.9 Anxiety disorder, unspecified; E11.9 Type 2 diabetes mellitus without complications; E03.9 Hypothyroidism, unspecified; E78.00 Pure hypercholesterolemia, unspecified; I10 Essential (primary) hypertension; Z90.49 Acquired absence of other specified parts of digestive tract; Z98.890 Other specified postprocedural states; Z87.891 Personal history of nicotine dependence; Z88.0 Allergy status to penicillin; Z88.5 Allergy status to narcotic agent; Z88.8 Allergy status to other drugs, medicaments and biological substances; Z91.030 Bee allergy status; Z91.040 Latex allergy status